=== PATIENT | male | born 1980 | race Caucasian/White ===

== ENCOUNTER 2018-09-15 20:53 | Emergency (ER) | payer BC ==
[2018-09-16] MEDS: KETOROLAC 30 MG INJ IM (00:09)
== END 2018-09-16 02:32 | disposition home or self-care (01) ==
LOC: FTE 09-16 02:32
DX: S62.346A Nondisplaced fracture of base of fifth metacarpal bone, right hand, initial encounter for closed fracture (principal); F17.210 Nicotine dependence, cigarettes, uncomplicated; X58.XXXA Exposure to other specified factors, initial encounter; Y92.9 Unspecified place or not applicable
CPT/HCPCS: 29125; 73130-RT; 96372; 99284-25